=== PATIENT | female | born 1990 | race American Indian/Alaskan Native ===

== ENCOUNTER 2018-03-03 09:06 | Emergency (ER) | payer BC, OTHER ==
[2018-03-03 10:37] LABS: Basophils % (Auto) 0.4 % (0.0-1.8); Eosinophils # (Auto) 0.1 K/mm3 (0.0-0.4); Eosinophils % (Auto) 2.4 % (0.0-4.3); Hematocrit 41.5 % (30.3-42.9); Hemoglobin 13.3 gm/dl (10.1-14.3); Lymphocytes # (Auto) 1.7 K/mm3 (1.2-5.4); Lymphocytes % (Auto) 33.9 % (13.4-35.0); Mean Corpuscular HGB Conc 32 % (30-34); Mean Corpuscular Hemoglobin 29 pg (28-32); Mean Corpuscular Volume 91 fl (79-97); Monocytes # (Auto) 0.6 K/mm3 (0.0-0.8); Monocytes % (Auto) 11.4 % (0.0-7.3); Platelet Count 269 K/mm3 (140-440); Red Blood Count 4.56 M/mm3 (3.65-5.03); Red Cell Distribution Width 13.3 % (13.2-15.2)
[2018-03-03 10:58] LABS: Alanine Aminotransferase 11 units/L (7-56); BUN/Creatinine Ratio 10; Blood Urea Nitrogen 7 mg/dL (7-17); Calcium 9.2 mg/dL (8.4-10.2); Hemolysis Index 5
--- NOTE | 2018-03-03 11:10 | Emergency Department Report ---
ED Female HPI - General Chief complaint: Urogenital-Female Stated complaint: ABD PAIN AND VOMITTING Time Seen by Provider: 03/03/18 11:02 Source: patient Mode of arrival: Ambulatory Limitations: No Limitations - History of Present Illness Initial comments: Yifan is a pleasant 27-year-old female with history of lupus on Plaquenil. Also has a history of hypertension. She is followed by title i paraprofessional Dr. Tyler. She has subjective fever and chills. Left flank pain with dysuria. She is concerned for a "bad urinary tract infection." Last UTI was diagnosed several months ago. MD Complaint: dysuria, pelvic pain, other (left flank pain) -: Gradual, days(s) (2) Radiation: suprapubic, L flank Severity: moderate Quality: cramping Consistency: constant Worsens with: urination Are you Now?: No - Related Data Home Medications Medication Instructions Recorded Confirmed Last Taken Sertraline [Zoloft] 50 mg PO QDAY 06/05/16 06/05/16 Unknown Previous Rx's Medication Instructions Recorded Last Taken Type HYDROcodone/APAP 5-325 [[place] 2 each PO Q4HR PRN #30 tablet 06/09/16 Unknown Rx 5/325] Ibuprofen [Motrin 800 MG tab] 800 mg PO Q8HR PRN #30 tablet 06/09/16 Unknown Rx Cefdinir 300 mg PO BID 10 Days #20 capsule 03/03/18 Unknown Rx HYDROcodone/APAP 5-325 [[place] 1 each PO Q6HR PRN #15 tablet 03/03/18 Unknown Rx 5/325] Promethazine [Phenergan TAB] 25 mg PO Q6HR PRN #10 tab 03/03/18 Unknown Rx Allergies Allergy/AdvReac Type Severity Reaction Status Date / Time fish derived Allergy Anaphylaxis Verified 06/05/16 11:02 latex Allergy Swelling Verified 06/05/16 11:02 ED Review of Systems ROS: Stated complaint: ABD PAIN AND VOMITTING Other details as noted in HPI Comment: All other systems reviewed and negative Constitutional: fever, malaise ENT: denies: throat pain Respiratory: denies: cough Cardiovascular: denies: chest pain Gastrointestinal: denies: nausea Genitourinary: urgency, dysuria, frequency ED Past Medical Hx - Past Medical History Previous Medical History?: Yes Hx Hypertension: Yes Additional medical history: LUPUS - Surgical History Past Surgical History?: Yes Additional Surgical History: x 2 - Social History Smoking Status: Former Smoker Substance Use Type: Non Opiate Pain, Prescribed - Medications Home Medications: Home Medications Medication Instructions Recorded Confirmed Last Taken Type Sertraline [Zoloft] 50 mg PO QDAY 06/05/16 06/05/16 Unknown History HYDROcodone/APAP 5-325 [[place] 2 each PO Q4HR PRN #30 tablet 06/09/16 Unknown Rx 5/325] Ibuprofen [Motrin 800 MG tab] 800 mg PO Q8HR PRN #30 tablet 06/09/16 Unknown Rx Cefdinir 300 mg PO BID 10 Days #20 capsule 03/03/18 Unknown Rx HYDROcodone/APAP 5-325 [[place] 1 each PO Q6HR PRN #15 tablet 03/03/18 Unknown Rx 5/325] Promethazine [Phenergan TAB] 25 mg PO Q6HR PRN #10 tab 03/03/18 Unknown Rx ED Physical Exam - General Limitations: No Limitations General appearance: alert, in no apparent distress - Head Head exam: Present: atraumatic, normocephalic - Eye Eye exam: Present: normal appearance - ENT ENT exam: Present: mucous membranes moist - Neck Neck exam: Present: normal inspection - Respiratory Respiratory exam: Present: normal lung sounds bilaterally. Absent: respiratory distress, wheezes, rales - Cardiovascular Cardiovascular Exam: Present: regular rate, normal rhythm. Absent: systolic murmur, diastolic murmur, rubs, gallop - GI/Abdominal GI/Abdominal exam: Present: soft, normal bowel sounds - Extremities Exam Extremities exam: Present: normal inspection - Back Exam Back exam: Present: normal inspection. Absent: CVA tenderness (R), CVA tenderness (L) - Neurological Exam Neurological exam: Present: alert, oriented X3 - Psychiatric Psychiatric exam: Present: normal affect, normal mood - Skin Skin exam: Present: warm, dry, intact, normal color. Absent: rash ED Course Vital Signs 03/03/18 09:42 Temperature 97.5 F L Pulse Rate 87 Respiratory 18 Rate Blood Pressure 150/93 O2 Sat by Pulse 99 Oximetry ED Medical Decision Making - Lab Data Result diagrams: 03/03/18 10:11 03/03/18 10:11 Laboratory Results - last 24 hr 03/03/18 03/03/18 10:11 10:11 WBC 5.0 RBC 4.56 Hgb 13.3 Hct 41.5 MCV 91 MCH 29 MCHC 32 RDW 13.3 Plt Count 269 Lymph % (Auto) 33.9 [place] % (Auto) 11.4 H Eos % (Auto) 2.4 Baso % (Auto) 0.4 Lymph # 1.7 [place] # 0.6 Eos # 0.1 Baso # 0.0 Seg Neutrophils % 51.9 Seg Neutrophils # 2.6 Sodium 136 L Potassium 3.4 L Chloride 102.4 Carbon Dioxide 27 Anion Gap 10 BUN 7 Creatinine 0.7 Estimated GFR > 60 BUN/Creatinine Ratio 10 Glucose 86 Calcium 9.2 Total Bilirubin 0.40 AST 15 ALT 11 Alkaline Phosphatase 82 Total Protein 7.7 Albumin 4.0 Albumin/Globulin Ratio 1.1 Vital Signs - 24 hr 03/03/18 09:42 Temperature 97.5 F L Pulse Rate 87 Respiratory 18 Rate Blood Pressure 150/93 O2 Sat by Pulse 99 Oximetry - Medical Decision Making Ms. Fajardo presents with acute polynephritis. She received IV ceftriaxone in the ED. She was prescribed cefdinir. Also prescribed [place] and promethazine. Critical care attestation.: If time is entered above; I have spent that time in minutes in the direct care of this critically ill patient, excluding procedure time. ED Disposition Clinical Impression: Acute pyelonephritis Disposition: - TO HOME OR SELFCARE Is pt being admited?: No Does the pt Need Aspirin: No Condition: Stable Instructions: Acute Pyelonephritis (ED) Prescriptions: Cefdinir 300 mg PO BID 10 Days #20 capsule HYDROcodone/APAP 5-325 [[place] 5/325] 1 each PO Q6HR PRN #15 tablet PRN Reason: Pain Promethazine [Phenergan TAB] 25 mg PO Q6HR PRN #10 tab PRN Reason: Nausea Referrals: PRIMARY CARE, [Primary Care Provider] - 3-5 Days
[2018-03-03] MEDS ORDERED: ZOFRAN ODT PO ONE (11:11)
[2018-03-03 11:59] LABS: HCG Qualitative,Urine Negative (Negative)
[2018-03-03 12:00] LABS: Bacteria,Urine 2+ /HPF (Negative); Bilirubin,Urine NEG (Negative); Blood,Urine SM (Negative); Color,Urine Yellow (Yellow); Mucus,Urine 2+ /HPF; Urobilinogen,Urine < 2.0 mg/dL (<2.0)
[2018-03-03] MEDS ORDERED: NORCO 5/325 PO ONE (12:14)
[2018-03-03] MEDS ORDERED: ZOFRAN ONE (12:57)
[2018-03-03] MEDS ORDERED: ZOFRAN IV ONE (12:58)
[2018-03-03] MEDS ORDERED: ROCEPHIN/NS 2 GM/100 ML 2 GM/100 ML BAG IV ONE (13:00)
[2018-03-03 13:26] VITALS: BP 111/87
== END 2018-03-03 13:38 | disposition home or self-care (01) ==
LOC: ED 09:06
DX: N10 Acute pyelonephritis (principal); I10 Essential (primary) hypertension; Z87.891 Personal history of nicotine dependence; Z91.013 Allergy to seafood; Z91.040 Latex allergy status
CPT/HCPCS: 36415; 80053; 81001; 81025; 85025; 96365; 96375; 99283; J0696; J2405

== ENCOUNTER 2018-10-28 09:14 | Emergency (ER) | payer OTHER ==
[2018-10-28 09:23] VITALS: BP 132/78
[2018-10-28 10:18] LABS: Basophils % (Auto) 0.5 % (0.0-1.8); Eosinophils # (Auto) 0.1 K/mm3 (0.0-0.4); Eosinophils % (Auto) 2.1 % (0.0-4.3); Hematocrit 39.3 % (30.3-42.9); Hemoglobin 13.3 gm/dl (10.1-14.3); Lymphocytes # (Auto) 1.6 K/mm3 (1.2-5.4); Mean Corpuscular HGB Conc 34 % (30-34); Mean Corpuscular Volume 88 fl (79-97); Monocytes # (Auto) 0.7 K/mm3 (0.0-0.8); Monocytes % (Auto) 9.8 % (0.0-7.3); Platelet Count 277 K/mm3 (140-440); Red Blood Count 4.47 M/mm3 (3.65-5.03); Red Cell Distribution Width 13.5 % (13.2-15.2)
--- NOTE | 2018-10-28 10:24 | Emergency Department Report ---
HPI - General Chief Complaint: Urogenital-Female Time Seen by Provider: 10/28/18 09:46 - HPI HPI: 27-year-old female presents to the emergency department with complaint of a 2 day history of not being able to urinate. Over that time, she has had progressively worsening abdominal pain and she says distention. She denies any fever, nausea, vomiting, vaginal bleeding or discharge. She has a past medical history of lupus and hypertension. She has not taken anything for her symptoms prior to presentation. Her vocal music teacher is Dr. Tyler. She does not have a primary care physician. ED Past Medical Hx - Past Medical History Previous Medical History?: Yes Hx Hypertension: Yes Additional medical history: LUPUS - Surgical History Past Surgical History?: Yes Additional Surgical History: x 2 - Social History Smoking Status: Never Smoker Substance Use Type: Alcohol - Medications Home Medications: Home Medications Medication Instructions Recorded Confirmed Last Taken Type Sertraline [Zoloft] 50 mg PO QDAY 06/05/16 06/05/16 Unknown History HYDROcodone/APAP 5-325 [[place] 2 each PO Q4HR PRN #30 tablet 06/09/16 Unknown Rx 5/325] RX: Ibuprofen [Motrin 800 MG tab] 800 mg PO Q8HR PRN #30 tablet 06/09/16 Unknown Rx RX: Cefdinir 300 mg PO BID 10 Days #20 capsule 03/03/18 Unknown Rx RX: Promethazine [Phenergan TAB] 25 mg PO Q6HR PRN #10 tab 03/03/18 Unknown Rx RX: HYDROcodone/APAP 5-325 [[place] 1 each PO Q6HR PRN #10 tablet 10/28/18 Unknown Rx 5-325 mg TAB] Sulfamethoxazole/Trimethoprim 1 each PO BID #10 tablet 10/28/18 Unknown Rx [Bactrim DS TAB] ED Review of Systems ROS: Stated complaint: CANT URINATE/STOMACH PAIN Other details as noted in HPI Comment: All other systems reviewed and negative Constitutional: denies: chills, fever Eyes: denies: eye pain, vision change ENT: denies: ear pain, throat pain Respiratory: denies: cough, shortness of breath Cardiovascular: denies: chest pain, palpitations Gastrointestinal: abdominal pain. denies: vomiting Genitourinary: other (unable to urinate). denies: discharge Musculoskeletal: denies: back pain, arthralgia Skin: denies: rash, lesions Neurological: denies: headache, weakness Physical Exam - Physical Exam Vital Signs: Vital Signs 10/28/18 10/28/18 09:22 09:31 Temperature 97.9 F 97.9 F Pulse Rate 98 H 98 H Respiratory 22 22 Rate Blood Pressure 132/78 Blood Pressure 132/78 [Left] O2 Sat by Pulse 100 98 Oximetry Physical Exam: GENERAL: The patient is well-developed well-nourished. HEENT: Normocephalic. Atraumatic. Patient has moist mucous membranes. EYES: Extraocular motions are intact. Pupils are equal and reactive to light bilaterally. NECK: Supple. Trachea is midline. CHEST/LUNGS: Clear to auscultation. There is no respiratory distress noted. HEART/CARDIOVASCULAR: Regular. There is no tachycardia. There is no obvious murmur. ABDOMEN: Abdomen is soft. There is mild generalized abdominal tenderness to palpation. Patient has normal bowel sounds. There is no abdominal distention. SKIN: Skin is warm and dry. NEURO: The patient is awake, alert, and oriented. The patient is cooperative. The patient has no focal neurologic deficits. The patient has normal speech. MUSCULOSKELETAL: There is no tenderness or deformity. There is no limitation range of motion. There is no evidence of acute injury. : There is no obvious vaginal or labial lesions seen. There is no erythema or edema seen to the genitals. ED Course Vital Signs 10/28/18 10/28/18 09:22 09:31 Temperature 97.9 F 97.9 F Pulse Rate 98 H 98 H Respiratory 22 22 Rate Blood Pressure 132/78 Blood Pressure 132/78 [Left] O2 Sat by Pulse 100 98 Oximetry ED Medical Decision Making - Lab Data Result diagrams: 10/28/18 10:03 10/28/18 10:03 - Medical Decision Making This patient presented to the emergency department with a complaint of 2 days without urinating causing some abdominal pain. At first the patient tried to void on her own but when she said she was unable to the patient was given a straight cath. She had a return of about 300 mL of urine which does show some level of hypertension but it is not what I would expect from 2 days without urinating. Patient's labs were unremarkable including a CBC, metabolic panel. She had a slight elevation in her lipase but not to a level that I am concerned for pancreatitis and her abdominal pain was more generalized. She also has a urinary tract infection. In the middle of her ED course, the patient did not seem to have any significant abdominal pain any further but was mostly complaining of some vaginal pain. With the nurse at bedside chaperoning, I took a look at the patient's vagina and labia and did not see any significant inflammation, erythema or any lesions. Patient was given antibiotics for her urinary tract infection and that should also cross cover for any possible skin infection that could be forming. Patient was given referrals for primary care and [facility]. She will return to the ER with any worsening of her symptoms or any acute distress. - Differential Diagnosis UTI, , colitis, pyelonephritis Critical Care Time: No Critical care attestation.: If time is entered above; I have spent that time in minutes in the direct care of this critically ill patient, excluding procedure time. ED Disposition Clinical Impression: Vaginal pain Abdominal pain Qualifiers: Abdominal location: generalized Qualified Code(s): R10.84 - Generalized abdominal pain UTI (urinary tract infection) Qualifiers: Urinary tract infection type: acute cystitis Hematuria presence: without hematuria Qualified Code(s): N30.00 - Acute cystitis without hematuria Disposition: TO HOME OR SELFCARE Is pt being admited?: No Condition: Stable Instructions: Urinary Tract Infection in Women (ED), Abdominal Pain (ED) Additional Instructions: Please follow up with a primary care physician regarding your abdominal pain and urinary tract infection. Please follow-up with an [facility]PT[facility] AND ADSORPTION ENGINEER regarding your vaginal pain. Take the antibiotics as prescribed. Return to the emergency Department with any worsening of her symptoms or any acute distress. You have been prescribed a medication that can be sedating. Therefore, this medication cannot be taken prior to driving, working, being responsible for children, and cannot be mixed with alcohol of any quantity. Prescriptions: RX: HYDROcodone/APAP 5-325 [[place] 5-325 mg TAB] 1 each PO Q6HR PRN #10 tablet PRN Reason: Pain Sulfamethoxazole/Trimethoprim [Bactrim DS TAB] 1 each PO BID #10 tablet Referrals: PRIMARY CAREMD [Referring] - 3-5 Days [facility], [facility] [Provider Group] - 3-5 Days [facility] [Provider Group] - 3-5 Days [facility] [Outside] - 3-5 Days LUCIA MASSEY DO [Staff Physician] - 3-5 Days Time of Disposition: 13:57
[2018-10-28 10:39] LABS: Alanine Aminotransferase 13 units/L (7-56); Albumin 4.4 g/dL (3.9-5); BUN/Creatinine Ratio 14; Blood Urea Nitrogen 10 mg/dL (7-17); Calcium 9.4 mg/dL (8.4-10.2); Hemolysis Index 7
[2018-10-28 13:20] LABS: HCG Qualitative,Urine Negative (Negative)
[2018-10-28 13:32] LABS: Bacteria,Urine 2+ /HPF (Negative); Bilirubin,Urine NEG (Negative); Blood,Urine NEG (Negative); Color,Urine Yellow (Yellow); Mucus,Urine 2+ /HPF; Urobilinogen,Urine < 2.0 mg/dL (<2.0)
[2018-10-28 13:37] LABS: WBC,Urine > 182.0 /HPF (0.0-6.0)
[2018-10-28] MEDS ORDERED: BACTRIM DS PO ONE (13:49)
== END 2018-10-28 14:07 | disposition home or self-care (01) ==
LOC: ED 09:14
DX: N39.0 Urinary tract infection, site not specified (principal); I10 Essential (primary) hypertension; Z91.013 Allergy to seafood; Z91.040 Latex allergy status
CPT/HCPCS: 36415; 80053; 81001; 81025; 83690; 85025

== ENCOUNTER 2020-05-19 17:38 | Emergency (ER) | payer MEDICAID ==
[2020-05-19] MEDS ORDERED: KETOROLAC 30 MG/1 ML INJ IM ONE (21:02)
--- NOTE | 2020-05-19 21:32 | Emergency Department Report ---
HPI - General Chief Complaint: Fall Time Seen by Provider: 05/19/20 20:53 - HPI HPI: This is a 29-year-old -[place] female presents to the emergency department with a complaint of pain to her entire back, and to the right side of the neck, after a fall about 2 hours prior to presentation. Patient has a history of lupus and often walks with a walker. This time, the patient was not walking with a walker when she says that her legs "gave out." Patient says that "with my lupus sometimes my joints act like they dont exist." She fell backwards onto her back. She denies hitting her head or any loss of consciousness. She has not taken anything for symptoms prior to presentation today. She denies any problems with bowel or bladder, numbness or paresthesias. ED Past Medical Hx - Past Medical History Hx Hypertension: Yes Additional medical history: LUPUS - Surgical History Additional Surgical History: x 2 - Social History Smoking Status: Never Smoker Substance Use Type: None - Medications Home Medications: Home Medications Medication Instructions Recorded Confirmed Last Taken Type Sertraline [Zoloft] 50 mg PO QDAY 06/05/16 06/05/16 Unknown History HYDROcodone/APAP 5-325 [[place] 2 each PO Q4HR PRN #30 tablet 06/09/16 Unknown Rx 5/325] Ibuprofen [Motrin 800 MG tab] 800 mg PO Q8HR PRN #30 tablet 06/09/16 Unknown Rx Cefdinir 300 mg PO BID 10 Days #20 capsule 03/03/18 Unknown Rx Promethazine [Phenergan] 25 mg PO Q6HR PRN #10 tab 03/03/18 Unknown Rx Sulfamethoxazole/Trimethoprim 1 each PO BID #10 tablet 10/28/18 Unknown Rx [Bactrim DS TAB] methylPREDNISolone [Medrol] 4 mg PO DAILY 6 Days #1 tab.ds.pk 01/21/19 Unknown Rx HYDROcodone/APAP 5-325 [[place] 1 each PO Q6HR PRN #10 tablet 05/19/20 Unknown Rx 5-325 mg TAB] ED Review of Systems ROS: Stated complaint: FALL/NECK/BACK PAIN Other details as noted in HPI Comment: All other systems reviewed and negative Constitutional: denies: chills, fever Eyes: denies: eye pain, vision change ENT: denies: ear pain, throat pain Respiratory: denies: cough, shortness of breath Cardiovascular: denies: chest pain, palpitations Gastrointestinal: denies: abdominal pain, vomiting Genitourinary: denies: dysuria, discharge Musculoskeletal: back pain. denies: arthralgia Skin: denies: rash, lesions Neurological: denies: headache, numbness, paresthesias Physical Exam - Physical Exam Vital Signs: Vital Signs 05/19/20 18:02 Temperature 98.1 F Pulse Rate 107 H Respiratory 18 Rate Blood Pressure 144/91 [Left] O2 Sat by Pulse 97 Oximetry Physical Exam: GENERAL: The patient is well-developed well-nourished. HENT: Normocephalic. Atraumatic. Patient has moist mucous membranes. EYES: Extraocular motions are intact. NECK: Supple. Trachea is midline. CHEST/LUNGS: Clear to auscultation. There is no respiratory distress noted. HEART/CARDIOVASCULAR: Regular. There is no tachycardia. There is no murmur. ABDOMEN: Abdomen is soft, nontender. Patient has normal bowel sounds. SKIN: Skin is warm and dry. NEURO: The patient is awake, alert, and oriented. The patient is cooperative. The patient has no focal neurologic deficits. Normal speech. MUSCULOSKELETAL: There is no tenderness or deformity. There is no limitation range of motion. BACK: There is both midline and bilateral paraspinal tenderness to palpation to the thoracic and lumbar back. ED Course Vital Signs 05/19/20 18:02 Temperature 98.1 F Pulse Rate 107 H Respiratory 18 Rate Blood Pressure 144/91 [Left] O2 Sat by Pulse 97 Oximetry ED Medical Decision Making - Radiology Data Radiology results: image reviewed interpreted by me: X-ray of the thoracic and lumbar spine did not show any fracture, subluxation, or any acute process. - Medical Decision Making This patient presents to the emergency department with complaint of back pain after having a fall onto her back earlier in the evening. She has both midline and bilateral paraspinal tenderness to palpation. X-rays were done of the thora cic and lumbar spines that did not show any fracture, subluxation, or any acute process. Patient had said that she had driven herself and so she was given some Toradol for her discomfort with some improvement. The patient was able to stand and ambulate without assistance while in the emergency department. Her vital signs have been reassuring. For these reasons the patient appears safe for discharge home at this time. She has been given outpatient referral for a neurosurgeon and orthopedic surgeon for follow-up regarding her back pains. She will return to the emergency department with any worsening of her symptoms or with any acute distress. Critical Care Time: No Critical care attestation.: If time is entered above; I have spent that time in minutes in the direct care of this critically ill patient, excluding procedure time. ED Disposition Clinical Impression: Lupus (systemic lupus erythematosus) Qualifiers: Systemic lupus erythematosus type: unspecified Systemic lupus erythematosus organ involvement: unspecified Qualified Code(s): M32.9 - Systemic lupus erythematosus, unspecified Fall Qualifiers: Encounter type: initial encounter Qualified Code(s): W19.XXXA - Unspecified fall, initial encounter Back pain Qualifiers: Back pain location: back pain in unspecified location Chronicity: unspecified Back pain laterality: bilateral Qualified Code(s): M54.9 - Dorsalgia, unspecified Disposition: - TO HOME OR SELFCARE Is pt being admited?: No Condition: Stable Instructions: Back Pain (ED), Fall Prevention (ED) Additional Instructions: Please follow-up with a primary care physician in the next few days. Return to the emergency department with any worsening of your symptoms or with any acute distress. I have given you a referral for a local neurosurgeon, Dr. Wright, and a local orthopedic group, [facility], to follow-up regarding your back pains. You have been prescribed a medication that is sedating and therefore should not be taken prior to driving, working, and responsible for children and in no way should be mixed with alcohol of any quantity. Prescriptions: HYDROcodone/APAP 5-325 [[place] 5-325 mg TAB] 1 each PO Q6HR PRN #10 tablet PRN Reason: Pain Referrals: PRIMARY CAREMD [Primary Care Provider] - 3-5 Days KRISTI WRIGHT II, MD [Staff Physician] - 3-5 Days [facility] [Provider Group] - 3-5 Days [facility] [Provider Group] - 3-5 Days Forms: Work/School Release Form(ED) Time of Disposition: 23:00
--- NOTE | 2020-05-19 22:23 | XRay Report ---
LUMBOSACRAL SPINE 3 VIEWS INDICATION / CLINICAL INFORMATION: Fall with low back pain. COMPARISON: None available. FINDINGS: BONES / JOINT(S): The vertebral body heights and disc spaces are well-maintained. The pedicles are in tact and the SI joints are normal. There is no evidence of fracture or subluxation. SOFT TISSUES: No significant abnormality. ADDITIONAL FINDINGS: None. THORACIC SPINE 3 VIEWS INDICATION / CLINICAL INFORMATION: Fall with thoracic back pain. COMPARISON: None available. FINDINGS: BONES / JOINT(S): The vertebral body heights and disc spaces are well-maintained. The pedicles are in tact. There is no evidence of fracture or subluxation. SOFT TISSUES: No significant abnormality. ADDITIONAL FINDINGS: None. IMPRESSION: No acute abnormality. Signer Name: Syed Kim MD Signed: 05/19/2020 10:18 PM Workstation Name: [id number]
[2020-05-19 23:43] VITALS: BP 124/78
== END 2020-05-19 23:42 | disposition home or self-care (01) ==
LOC: ED 17:38
DX: M54.6 Pain in thoracic spine (principal); M32.9 Systemic lupus erythematosus, unspecified; I10 Essential (primary) hypertension; Z98.890 Other specified postprocedural states; Z79.1 Long term (current) use of non-steroidal anti-inflammatories (NSAID); Z79.899 Other long term (current) drug therapy; Z91.040 Latex allergy status; Z91.013 Allergy to seafood; W19.XXXA Unspecified fall, initial encounter; Y93.89 Activity, other specified; Y92.89 Other specified places as the place of occurrence of the external cause; Y99.8 Other external cause status
CPT/HCPCS: 72072; 72100; 96372; 99283; J1885